=== PATIENT | female | born 1975 | race Two or more races ===

== ENCOUNTER 2021-12-18 20:31 | Emergency (ER) | payer MEDICAID, OTHER ==
[~2021-12-18] VITALS: Ht 167.6 cm; Wt 137.4 kg
[2021-12-18 20:31] VITALS: BP 182/113
[2021-12-19 01:49] LABS: Urine Bacteria FEW /hpf (None Seen); Urine Blood Negative /uL (Negative); Urine Specific Gravity 1.005 (1.001-1.035); Urine WBC 1 /hpf (0 - 5)
== END 2021-12-19 01:24 | disposition left against medical advice (07) ==
LOC: ER 20:41
DX: R10.32 Left lower quadrant pain (principal); R10.2 Pelvic and perineal pain; Z53.21 Procedure and treatment not carried out due to patient leaving prior to being seen by health care provider
CPT/HCPCS: 81001; 81025